=== PATIENT | male | born 1950 | race Caucasian/White ===

== ENCOUNTER 2018-03-15 06:48 | Day surgery (SDC) | payer MEDICARE, BC ==
[2018-03-15] MEDS ORDERED: Midazolam 1 MG/ML 2 ML SDV ONE (07:26)
[2018-03-15] MEDS ORDERED: fentaNYL 100 MCG/2 ML SDV ONE (07:26)
[2018-03-15] MEDS ORDERED: Propofol 200 MG/20 ML SDV ONE (07:26)
[2018-03-15] MEDS ORDERED: Sodium Chloride 0.9% 1,000 ML IV SCH (07:30)
[2018-03-15 09:56] VITALS: BP 119/71
--- NOTE | 2018-03-15 13:51 | OR ---
DATE OF PROCEDURE: 03/15/2018 PROCEDURE: Colonoscopy. FINDINGS: 1. Ascending colon polyp, approximately 5 mm, completely removed with cold biopsy forceps. 2. Sigmoid colon polyp, approximately 5 mm, completely removed using cold biopsy forceps. 3. Diverticulosis, [id number], mostly limited to the sigmoid colon. RISKS: Risks, benefits, alternatives, and limitations including, but not limited to infection, bleeding, and perforation were explained to the patient. PREOPERATIVE DIAGNOSIS: Family history/history of colon polyps. POSTOPERATIVE DIAGNOSIS: Family history/history of colon polyps. PROCEDURE IN DETAIL: The patient was placed in left lateral decubitus position. Digital rectal exam was performed without abnormality. The scope was advanced atraumatically to the ileocecal valve. The scope was brought back to the ascending, transverse, descending colon, and retroflexed. The aforementioned polyps were identified and completely removed. Diverticulosis would be described as moderate, limited to the sigmoid colon, and no evidence of diverticulitis. No abnormalities on retroflexion. The patient tolerated the procedure well. Laron Anthony MD /[id number]
== END 2018-03-15 09:57 | disposition home or self-care (01) ==
LOC: JP.SDS 06:48
PROVIDERS: ATTEND Surgery
DX: Z12.11 Encounter for screening for malignant neoplasm of colon (principal); D12.2 Benign neoplasm of ascending colon; K63.5 Polyp of colon; K57.30 Diverticulosis of large intestine without perforation or abscess without bleeding; E78.5 Hyperlipidemia, unspecified; Z86.010 Personal history of colon polyps; Z80.0 Family history of malignant neoplasm of digestive organs
CPT/HCPCS: 45380; 88305; J2250; J2704; J3010; J7040

== ENCOUNTER 2019-08-07 09:21 | Day surgery (SDC) | payer MEDICARE, BC ==
[~2019-08-07 09:21] MED LIST: Bupivacaine 0.5% 50 ML MDV ONE; Lidocaine 1% with EPINEPHrine 1:100,000 50 ML MDV ONE; Succinylcholine 200 MG/10 ML MDV ONE
[2019-08-07] MEDS ORDERED: Rocuronium 50 MG/5 ML Vial ONE (09:22)
[2019-08-07] MEDS ORDERED: Propofol 200 MG/20 ML SDV ONE (09:22)
[2019-08-07] MEDS ORDERED: Ondansetron 4 MG/2 ML SDV ONE (09:22)
[2019-08-07] MEDS ORDERED: Glycopyrrolate 0.2 MG/ML 5 ML MDV ONE (09:22)
[2019-08-07] MEDS ORDERED: Dexamethasone 4 MG/ML SDV ONE (09:22)
[2019-08-07] MEDS ORDERED: Neostigmine Methylsulfate 1 MG/ML 5 ML Syringe ONE (09:22)
[2019-08-07] MEDS ORDERED: fentaNYL 250 MCG/5 ML SDV ONE ×2 (09:23→11:04)
[2019-08-07] MEDS ORDERED: Ketorolac 60 MG/2 ML SDV ONE (09:34)
[2019-08-07] MEDS ORDERED: ceFAZolin 2 GM in Premix Bag 1 BAG IV ONE (10:00)
[2019-08-07] MEDS ORDERED: metroNIDAZOLE/Normal Saline 500 MG in Premix Bag 1 BAG IV ONE (10:00)
[2019-08-07] MEDS ORDERED: Sodium Chloride 0.9% 1,000 ML IV SCH (10:00)
[2019-08-07] MEDS ORDERED: Ropivacaine 44 ML, dexAMETHasone 8 MG, EPINEPHrine 0.4 MG, Sodium Chloride 0.9% 33.6 ML NERVRT SCH ×4 (11:00)
[2019-08-07] MEDS ORDERED: Sugammadex Sodium 200 MG/2 ML VIAL ONE (11:56)
[2019-08-07] MEDS ORDERED: hydrOXYzine HCl 100 MG/2 ML SDV IM ONE (12:25)
[2019-08-07] MEDS ORDERED: Acetaminophen/HYDROcodone 325-5 MG Tab PO ONE (14:00)
[2019-08-07 14:53] VITALS: BP 126/72; PULSE 54
--- NOTE | 2019-08-08 09:03 | OR ---
DATE OF PROCEDURE: 08/07/2019 SURGEON: Laron Anthony MD PROCEDURE: Total extraperitoneal hernia repair, right. COMPLICATIONS: None. RN TRANSPORT: None. ANESTHESIA: General. RISKS: Risks, benefits, alternatives, and limitations including, but not limited to infection, bleeding, testicular injury, requirement for open surgery, injury to blood vessels or bladder, and other risks not listed here. The patient understands these risks and wished to proceed. PROCEDURE IN DETAIL: The patient was placed in supine position. An infraumbilical incision was made. This was carried down with electrocautery proximally to the rectus muscles. A Pean was then used to make preperitoneal space. The balloon dissector was introduced. This was pumped approximately 30 times and held for 1.5 minutes. This was then removed, and the preperitoneal space was insufflated. The hernia was readily identified and noted to be an indirect hernia. Using a vyqyruw-[id number]-yuvems approach, blunt dissection was performed without difficulty. The patient did have some adhesions in the sac area. This was bluntly dissected. The cord structures were readily identified and not interacted with in anyway, except for identification. Once this was complete, no bleeding was noted. The mesh was cut to size, rolled and placed with an overlap of approximately 2 cm from the pubic symphysis directly over the hernia. This was unfolded without difficulty. The air was subsequently desufflated. The fascia was approximated with #1 Vicryl interrupted sutures. Subcutaneous tissues were approximated with 3-0 Vicryl. The skin was closed with 4-0 Vicryl and Dermabond. The patient tolerated the procedure well. Laron Anthony MD /[id number]
--- NOTE | 2019-08-08 09:09 | OR ---
DATE OF PROCEDURE: 08/07/2019 SURGEON: Laron Anthony MD PROCEDURE: Transversus abdominis plane block, bilaterally. COMPLICATION: None. OFFAL ICER POULTRY: None. RISKS: Risks, benefits, alternatives, and limitations including, but not limited to infection, bleeding, and injury to abdominal structures were explained to the patient, who wished to proceed. PROCEDURE IN DETAIL: The patient was placed in supine position. The left side was addressed first. Using 11 megahertz ultrasound probe, the transversus abdominis plane was identified and injected with approximately 80% of the solution. The right side was performed in the same manner, same fashion, same technique, in the same sequence, and using the same equipment, except for different needle and syringe. The patient tolerated the procedure well. Laron Anthony MD /[id number]
== END 2019-08-07 14:30 | disposition home or self-care (01) ==
LOC: JP.SDS 09:21
PROVIDERS: ATTEND Surgery
DX: K40.90 Unilateral inguinal hernia, without obstruction or gangrene, not specified as recurrent (principal); E78.5 Hyperlipidemia, unspecified; G89.18 Other acute postprocedural pain; Z91.013 Allergy to seafood; Z79.82 Long term (current) use of aspirin; Z79.899 Other long term (current) drug therapy
CPT/HCPCS: 49650; 64488; A9270; C1781; J0171; J0330; J0690; J1100; J1885; J2405; J2704; J2710; J2795; J3010; J3410; J3490; J7050

== ENCOUNTER 2021-02-03 06:23 | Day surgery (SDC) | payer MEDICARE, BC ==
[2021-02-03] MEDS ORDERED: Midazolam 1 MG/ML 2 ML SDV ONE (07:11)
[2021-02-03] MEDS ORDERED: fentaNYL 100 MCG/2 ML SDV ONE (07:11)
[2021-02-03] MEDS ORDERED: Propofol 200 MG/20 ML SDV ONE (07:11)
[2021-02-03] MEDS ORDERED: Sodium Chloride 0.9% 1,000 ML IV SCH (09:00)
[2021-02-03 09:22] VITALS: BP 123/68; PULSE 47
--- NOTE | 2021-02-03 10:26 | OR ---
DATE OF PROCEDURE: 02/03/2021 SURGEON: Laorn Anthony MD PROCEDURE: Colonoscopy. PREOPERATIVE DIAGNOSIS: Family history of colonoscopy. POSTOPERATIVE DIAGNOSIS: Family history of colonoscopy. FINDINGS: Sigmoid colon polyp, approximately 5 mm, completely removed using cold biopsy forceps. Diverticulosis without evidence of diverticulitis or bleeding. COMPLICATIONS: None. TRACK INSPECTOR: None. ANESTHESIA: MAC. RISKS: Risks, benefits, alternatives, and limitations including, but not limited to infection, bleeding, perforation, false positives, false negatives were explained to the patient who wished to proceed. PROCEDURE IN DETAIL: The patient was placed in left lateral decubitus position. Digital rectal exam was performed without abnormality. Scope was introduced and advanced atraumatically to the ileocecal valve. Scope was brought back to the ascending, transverse, descending colon, and retroflexed. The patient had 1 small polyp in the sigmoid colon which was completely removed using cold biopsy forceps. No abnormalities on retroflexion. The patient did have diverticulosis that was described as moderate, extending throughout the entire colon, but mostly concentrated in a classic pattern in the sigmoid colon. No abnormalities on retroflexion. The prep was moderately acceptable, approximately 90% of the luminal surface could be seen with solid and liquid stool remaining. Suction and irrigation techniques were used to remove the maximum amount of this. Greater than 8 minutes was spent removing the scope. Laron Anthony MD /[id number]
== END 2021-02-03 09:24 | disposition home or self-care (01) ==
LOC: JP.SDS 06:23
PROVIDERS: ATTEND Surgery
DX: Z12.11 Encounter for screening for malignant neoplasm of colon (principal); D12.5 Benign neoplasm of sigmoid colon; K57.30 Diverticulosis of large intestine without perforation or abscess without bleeding; E78.00 Pure hypercholesterolemia, unspecified; Z91.013 Allergy to seafood
CPT/HCPCS: J2250; J2704; J3010; J7030

== ENCOUNTER 2023-11-15 08:51 | Day surgery (SDC) | payer MEDICARE, BC ==
[2023-11-15] MEDS ORDERED: Sodium Chloride 0.9% 1,000 ML IV SCH (09:45)
[2023-11-15] MEDS ORDERED: fentaNYL 100 MCG/2 ML SDV ONE (10:51)
[2023-11-15] MEDS ORDERED: Propofol 200 MG/20 ML SDV ONE (10:51)
[2023-11-15 13:04] VITALS: BP 123/78; PULSE 48
== END 2023-11-15 13:20 | disposition home or self-care (01) ==
LOC: JP.SDS 08:51
PROVIDERS: ATTEND Surgery
DX: Z12.11 Encounter for screening for malignant neoplasm of colon (principal); K63.5 Polyp of colon; K57.30 Diverticulosis of large intestine without perforation or abscess without bleeding; E78.5 Hyperlipidemia, unspecified; Z91.013 Allergy to seafood
CPT/HCPCS: 45380; 88305; J2704; J3010; J7030